=== PATIENT | male | born 1955 | race Caucasian/White ===

== ENCOUNTER 2018-08-18 11:00 | Emergency (ER) | payer BC, OTHER ==
[2018-08-18 11:10] VITALS: BP 138/98; PULSE 109; TEMP 98.1; BMI 22.8
[2018-08-18] MEDS ORDERED: KETOROLAC TROMETHAMINE 60 MG/2 ML VIAL IM ONE (11:56)
[2018-08-18] MEDS ORDERED: CYCLOBENZAPRINE HCL 10 MG TABLET (FP) PO ONE (11:56)
[2018-08-18] MEDS ORDERED: LIDOCAINE 5% TOPICAL PATCH TP ONE (11:56)
--- NOTE | 2018-08-18 11:56 | PDOC ---
History of Present Illness - General Chief Complaint: Back Pain Stated Complaint: LOWER RT.BACK PAIN Time Seen by Provider: 08/18/18 11:12 History Source: Patient Exam Limitations: No Limitations Past History - Travel Traveled outside of the country in the last 30 days: No Close contact w/someone who was outside of country & ill: No - Past Medical History Allergies/Adverse Reactions: Allergies Allergy/AdvReac Type Severity Reaction Status Date / Time No Known Allergies Allergy Verified 08/18/18 11:08 Home Medications: Ambulatory Orders Alprazolam [Xanax] 1 mg PO DAILY 08/23/12 Oxycodone HCl/Acetaminophen [Percocet 10-325 mg Tablet] 1 - 2 tab PO Q8H Simvastatin [Zocor -] 10 mg PO HS 08/23/12 Aspirin [ASA -] 81 mg PO DAILY 11/27/13 Atorvastatin Ca [Lipitor] 80 mg PO HS 11/27/13 Lisinopril [Prinivil -] 2.5 mg PO DAILY 11/27/13 Metoprolol Succinate [Toprol XL -] 12.5 mg PO DAILY 11/27/13 Sulfasalazine [Azulfidine] 500 mg PO HS 11/27/13 Cane 1 each MC DAILY #1 each 08/18/18 Cyclobenzaprine HCl [Flexeril -] 10 mg PO HS #10 tablet 08/18/18 Methylprednisolone [Medrol Dose [place]] 4 mg PO ASDIR #21 tablet 08/18/18 Cardiac Disorders: Yes ([place]) COPD: No HTN: Yes Hypercholesterolemia: Yes Psychiatric Problems: Yes (anxiety) Other medical history: DEGENERATIVE DISC DIS - Surgical History Cardiac Surgery: Yes (stents) - Suicide/Smoking/Psychosocial Hx Smoking Status: No Smoking History: Former smoker Have you smoked in the past 12 months: No Number of Cigarettes Smoked Daily: 0 If you are a former smoker, when did you quit?: 2006 Information on smoking cessation initiated: No Hx Alcohol Use: No Drug/Substance Use Hx: No Substance Use Type: Marijuana Hx Substance Use Treatment: No Review of Systems - Review of Systems Able to Perform ROS?: Yes Comments:: 08/18/18 12:45 CONSTITUTIONAL: Absent: fever, chills, diaphoresis, generalized weakness, malaise, loss of appetite GASTROINTESTINAL: Absent: abdominal pain, abdominal distension, nausea, vomiting, diarrhea, constipation, melena, hematochezia GENITOURINARY: Absent: dysuria, frequency, urgency, hesitancy, hematuria, flank pain, genital pain MUSCULOSKELETAL: Present: low back pain, radiating down the R leg Absent: arthralgia, joint swelling SKIN: Absent: rash, itching, pallor NEUROLOGIC: Absent: headache, focal weakness or paresthesias, dizziness, unsteady gait, seizure, mental status changes, bladder or bowel incontinence PSYCHIATRIC: Absent: anxiety, depression, suicidal or homicidal ideation, hallucinations. Is the patient limited [place] proficient: No *Physical Exam - Vital Signs Last Vital Signs Temp Pulse Resp BP Pulse Ox 98.1 F 109 H 18 138/98 98 08/18/18 11:03 08/18/18 11:03 08/18/18 11:03 08/18/18 11:03 08/18/18 11:03 - Physical Exam Comments: 08/18/18 12:45 GENERAL: Well developed, well nourished. Awake and alert. No acute distress. MUSCULOSKELETAL TTP of the midline around L5/ (+) straight leg test on the R. Strength 4/5 on the R leg, 5/5 on the left. Normal range of motion at all other joints. No bony deformities or tenderness. No CVA tenderness. EXTREMITIES: No cyanosis. No clubbing. No edema. No calf tenderness. SKIN: Warm and dry. Normal capillary refill. No rashes. No jaundice. NEUROLOGICAL: Alert, awake, appropriate. Cranial nerves 2-12 intact. No deficits to light touch and temperature in face, upper extremities and lower extremities. No motor deficits in the in face, upper extremities and lower extremities. Normoreflexic in the upper and lower extremities. Normal speech. Toes are down- going bilaterally. Gait is normal without ataxia. Walking with limp favoring the L side. Normal rectal tone. PSYCHIATRIC: Cooperative. Good eye contact. Appropriate mood and affect. Medical Decision Making - Medical Decision Making 08/18/18 12:47 The patient is a 63-year-old male with past medical history of laminectomy low back, CAD, [place] status post stents in 2012, presents to the ER today with worsening low back pain. He states that his pain started approximately 1 week ago. He states that it was gradually getting better over the past week with home remedies. 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 He states that the pain is now going down the right leg. He is walking with a limp and using a cane to ambulate which he does not normally do. States he feels like the pain is a shooting pinching pain. Denies fevers, chills, numbness and tingling to the extremity, saddle anesthesia, bladder/bowel incontinence, trauma and fall. He follows with his PCP and has a prescription for percocet which he has taken prior to arrival. A/P: back pain -Pt with TTP of the midline around L5/ (+) straight leg test on the R. Muscles tense of the paraspinous muscles L3-S1. Strength 4/5 on the R leg, 5/5 on the left. Normal range of motion at all other joints. No bony deformities or tenderness. No CVA tenderness. -No trauma, or fever. No saddle anesthesia or bladder/bowel incontinence. No CVA tenderness. -Pt is neurologically intact on exam with no focal findings. -Toradol given with relief of symptoms -Lumbar spine x-ray shows decreased disc space from L5-S1 when compaired to previous x-ray on wet read] -Will refer to orthospine given patient may have disc pathology -DC home -I discussed the physical exam findings, ancillary test results and final diagnoses with the patient. I answered all of the patient's questions. The patient was satisfied with the care received and felt comfortable with the discharge plan and treatment plan. The Patient agrees to follow up with the primary care physician/specialist within 24-72 hours. Return precautions were given. *DC/Admit/Observation/Transfer Diagnosis at time of Disposition: Back pain Qualifiers: Back pain location: low back pain Chronicity: acute Back pain laterality: midline Sciatica presence: with sciatica Sciatica laterality: sciatica of right side Qualified Code(s): M54.41 - Lumbago with sciatica, right side - Discharge Dispostion Disposition: HOME Condition at time of disposition: Stable Decision to Admit order: No - Referrals Referrals: Jose Luis Desai MD [Primary Care Provider] - Maynor Prather MD [Staff Physician] - - Patient Instructions Printed Discharge Instructions: DI for Back Pain With Sciatica Additional Instructions: You have low back pain due to a muscle spasm verse a herniated disc. Please take the steroid pack as prescribed. You were also prescribed Flexeril. Please take this medication every 8 hours for the first day. Then take the medication before you go to bed. Do not drive after taking this medication as it may make you sleepy. Take your percocet as prescribed. You may use warm compresses on your back to help with her symptoms. Please follow-up with your primary care doctor. If your symptoms do not resolve in 3-5 days, follow-up with neurosurgery. A referral has been provided for you. Return to the emergency department if you have worsening back pain, bladder or bowel incontinence, numbness and tingling in her legs, changes in the way you walk, or any new or worsening symptoms. - Post Discharge Activity Forms/Work/School Notes: Back to Work
[2018-08-18] MEDS ORDERED: CYCLOBENZAPRINE HCL 10 MG TABLET (FP) ONE (12:03)
[2018-08-18] MEDS ORDERED: LIDOCAINE 5% TOPICAL PATCH ONE (12:03)
[2018-08-18] MEDS ORDERED: KETOROLAC TROMETHAMINE 60 MG/2 ML VIAL ONE (12:03)
[2018-08-18] MEDS ORDERED: LIDOCAINE PATCH REMOVAL MC SCH (22:00)
== END 2018-08-18 13:09 | disposition home or self-care (01) ==
LOC: JERFT 11:00
PROC: 3E0233Z Introduction of Anti-inflammatory into Muscle, Percutaneous Approach (ICD-10-PCS; principal; 2018-08-18)
DX: M54.41 Lumbago with sciatica, right side (principal); M51.37 Other intervertebral disc degeneration, lumbosacral region; I25.10 Atherosclerotic heart disease of native coronary artery without angina pectoris; I10 Essential (primary) hypertension; I25.2 Old myocardial infarction; E78.5 Hyperlipidemia, unspecified; F41.9 Anxiety disorder, unspecified
CPT/HCPCS: 72100-TC-FY; 96372; 99281-25

== ENCOUNTER 2019-12-03 17:44 | Observation (INO) | payer OTHER ==
--- NOTE | 2019-12-03 17:57 | PDOC ---
Rapid Medical Evaluation Time Seen by Provider: 12/03/19 17:50 Medical Evaluation: Allergies Allergy/AdvReac Type Severity Reaction Status Date / Time No Known Allergies Allergy Verified 12/03/19 17:50 12/03/19 17:51 Pt presents to the ER for an episode of sudden onset dizziness, blurry vision and headache starting one hour ago. Pt reports a eye heaviness Exam: R facial flattening Orders: Stroke orderset / code herrera Pt to proceed to the ER/CT for further evaluation Discharge Disposition - Diagnosis Dizziness - Referrals - Patient Instructions - Post Discharge Activity
[2019-12-03] MEDS: SODIUM CHLORIDE 1,000 ML IV SCH (18:39)
[2019-12-03] MEDS ORDERED: ASPIRIN 81 MG CHEWABLE TABLETS PO ONE (18:40)
--- NOTE | 2019-12-03 18:40 | PDOC ---
History of Present Illness - General History Source: Patient Exam Limitations: No Limitations - History of Present Illness Initial Comments: 12/03/19 18:03 HPI: 64 yo M pmh CAD with IN s/p 3 stents in 2012 not on AC, presenting with acute resolved painless visual field loss lasting from 4:30 to 4:50PM this evening. 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 Field loss was accompanied by an intense tingling sensation superior and lateral to his eye that has since decreased in severity with only mild tingling at present. Endorses feeling intense anxiety at this point. Looked at himself in the mirror and noted a normal smile, no droop, kole es any focal numbness / tingling other than facial. History of left eye strabismus, corrected. Denies history of headaches, no chest pain, fevers, chills, nausea, vomiting, SOB, cough, recent illnesses. Denies any pungent / toxic fumes while working on the air conditioning unit. All: NKDA Meds: Per chart PMH: As above PSH: 3x cardiac stents <Rik Liang - Last Filed: 12/15/19 05:32> <Caleb Judge - Last Filed: 12/16/19 21:22> - General Chief Complaint: CVA/TIA Stated Complaint: DIZZINESS/RT EYE BLURRY VISION Time Seen by Provider: 12/03/19 17:50 NIH Stroke Scale - Last Known Well Date/Time & Onset Date Last Known Well: 12/03/19 Time Last Known Well: 16:30 - Initial Evaluation Level of consciousness: Alert Ask patient the month and their age: Answers both correctly Ask patient to open & close eyes; make fist and let go: Obeys both correctly Best gaze (horizontal eye movement): Normal Visual field testing: No visual field loss Facial paresis (Show teeth/raise eyebrows/close eyes tight): Normal symmetrical movement Motor Function: Left Arm: Normal Motor Function: Right Arm: Normal (extends arm 90 (or 45) degrees for 10 seconds without drift Motor Function: Left Leg: Normal (extends leg 30 degrees for 5 seconds without drift) Motor Function: Right Leg: Normal (extends leg 30 degrees for 5 seconds without drift) Limb Ataxia: No ataxia Sensory(Use pinprick test arms,legs,trunk,face/side to side): Normal Best language (Describe picture, name items, read sentences): No Aphasia Dysarthria (read several words): Normal articulation Extinction and Inattention: No abnormality - Total Score NIH Stroke Scale Score: 0 <Rik Liang - Last Filed: 12/15/19 05:32> tPA Exclusion Checklist 0-3hr - Time Elapsed Date last known well: 12/03/19 Time last known well: 16:30 Elaspsed time: 11 Day(s) and 13 Hour(s) and 2 Minutes - Thrombolytic Therapy Candidate Is the patient eligible for Thrombolytic Therapy?: No - Exclusion Criteria 0-3hr SBP greater than 185 or DBP greater than 110mmHg despite tx: No Recent IC/spinal surgery,head trauma or stroke w/in last 3mo: No Hx of previous IC hemorrhage, IC neoplasm, AVM or aneurysm: No Active internal bleeding: No Blding diathesis(low plt ct, inc PTT,INR>1.7 or use of NOAC): No Symptoms suggest subarachnoid hemorrhage: No CT demonstrates multilobar infarct(>1/3 cerebral hemiphere): No Arterial puncture at noncompressible site in previous 7 days: No Blood glucose concentration less than 50mg/dL (2.7mmol/L): No - Relative Exclusion Criteria 0-3h Care team unable to determine eligibility: No IV/IA thrombolysis/thrombectomy @ another hosp prior arrival: No Life expectancy <1yr/severe co-morbid illness/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 on 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: No : No Patient/family refused: No Stroke severity too mild (non-disabling): Yes Recent acute IN (w/in previous 3 months): No Seizure at onset with postictal residual neuro impairments: No Major surgery or serious trauma w/in previous 14 days: No Recent GI or hemorrhage (w/in previous 21 days): No <Rik Liang - Last Filed: 12/15/19 05:32> Past History - Travel History Traveled outside of the country in the last 30 days: No Close contact w/someone who was outside of country & ill: No - Medical History Cardiac Disorders: Yes (STENTS X 3) COPD: No HTN: Yes Hypercholesterolemia: Yes Psychiatric Problems: Yes (anxiety) - Surgical History Cardiac Surgery: Yes (stents) - Immunization History Immunization Up to Date: Yes - Psycho-Social/Smoking History Smoking Status: No Smoking History: Never smoked Have you smoked in the past 12 months: No Number of Cigarettes Smoked Daily: 0 If you are a former smoker, when did you quit?: 2006 - Substance Abuse Hx (Audit-C & DAST Scrn) How often the patient has a drink containing alcohol: Never Score: In Men: 4 or > Positive; In Women: 3 or > Positive: 0 Screen Result (Pos requires Nsg. Audit-10AR): Negative In the last yr the pt used illegal drug/Rx for NonMed reason: Yes Score: Yes response is considered Positive: 1 Screen Result (Positive result requires Nsg. DAST-10): Positive <Rik Liang - Last Filed: 12/15/19 05:32> <Caleb Judge - Last Filed: 12/16/19 21:22> - Medical History Allergies/Adverse Reactions: Allergies Allergy/AdvReac Type Severity Reaction Status Date / Time No Known Allergies Allergy Verified 12/03/19 17:50 Home Medications: Ambulatory Orders Alprazolam [Xanax] 0.5 mg PO TID 08/23/12 Atorvastatin Ca [Lipitor] 40 mg PO HS 12/04/19 Oxycodone HCl/Acetaminophen [Endocet 10-325 mg Tablet] 1 each PO QID PRN 12/04/19 Review of Systems - Review of Systems Able to Perform ROS?: Yes Is the patient limited [place] proficient: Yes Constitutional: No: Chills, Fever, Weakness HEENTM: Yes: Recent change in vision. No: Hearing Loss, Throat Pain Respiratory: No: Cough, Shortness of Breath, Wheezing Cardiac (ROS): No: Chest Pain, Edema, Irregular Heart Rate, Lightheadedness, Palpitations, Syncope, Chest Tightness ABD/GI: No: Constipated, Diarrhea, Nausea, Vomiting : No: Dysuria, Discharge, Frequency Musculoskeletal: No: Muscle Pain, Muscle Weakness Integumentary: No: Pruritus, Rash Neurological: No: Headache, Numbness, Tingling, Weakness Psychiatric: Yes: Anxiety. No: Depression, Frequent Crying, Change in Appetite Endocrine: No: Increased Thirst, Increased Urine, Change in Weight Hematologic/Lymphatic: No: Anemia, Blood Clots, Easy Bleeding All Other Systems: Reviewed and Negative <Rik Liang - Last Filed: 12/15/19 05:32> *Physical Exam - Vital Signs Last Vital Signs Temp Pulse Resp BP Pulse Ox 99.1 F 92 H 20 155/87 97 12/03/19 17:51 12/03/19 17:51 12/03/19 17:51 12/03/19 17:51 12/03/19 17:51 - Physical Exam 12/03/19 19:01 Vitals reviewed, AFVSS GEN: Well appearing, appears stated age, NAD, comfortable. AAOx3. HEENT: NCAT, EOMI, PERRL. Sclera anicteric, non-injected. No facial asymmetry. Moist mucous membranes. Normal voice. Trachea midline. CV: RRR, S1/S2, no murmurs / rubs / gallops appreciated. LUNG: CTABL, normal work of breathing. No wheezes, rales, rhonchi. No cough. Speaking full sentences. GI: Soft, NTND, +BS, no guarding, no rebound. No masses. EXTREMITIES: 2+ distal pulses. No clubbing / cyanosis / edema. No gross deformity in any extremity. SKIN: Warm, dry, no rashes appreciated, non-jaundiced. PSYCH: Normal mood and affect. Cooperative and appropriate. NEURO: NIHSS 0 on arrival Strength 5+ biceps, triceps, intrinsic hand muscles, hip flexors / extensors / foot dorsiflexion / plantarflexion Sensation normal throughout to light touch Reflexes not assessed Romberg negative [id number] and heel-wells normal (+No dysmetria) Rapid alternating movements normal (No dysdiadokinesis) Pronator drift not present Gait normal 20/20 visual acuity with corrective lenses Cranial nerves: CN 1: Not assessed CN 2: Normal visual pinzon and acuity CN 3/4/6: EOMI CN 5: Patient reporting decreased / abnormal sensation over a 3cm patch of V1 on the right around the eye not consistent with a distribution CN 7: Normal facial movement CN 8: Symmetric hearing soft sounds CN 9: Uvula midline and normal articulation CN 10: Uvula midline and normal articulation CN 11: Normal shrug / head turn strength CN 12: Normal tongue movement A&Ox3, normal remote and recent recall. <Rik Liang - Last Filed: 12/15/19 05:32> - Vital Signs Last Vital Signs Temp Pulse Resp BP Pulse Ox 97.6 F 68 18 139/72 97 12/05/19 09:00 12/05/19 09:00 12/05/19 10:00 12/05/19 09:00 12/05/19 10:00 <Caleb Judge - Last Filed: 12/16/19 21:22> ED Treatment Course - LABORATORY CBC & Chemistry Diagram: 12/05/19 06:50 12/05/19 06:50 <Rik Liang - Last Filed: 12/15/19 05:32> - LABORATORY CBC & Chemistry Diagram: 12/05/19 06:50 12/05/19 06:50 - ADDITIONAL ORDERS Additional order review: 12/03/19 18:20 RBC 4.24 MCV 94.3 MCHC 34.3 RDW 12.7 MPV 8.8 Neutrophils % 67.2 Lymphocytes % 23.6 D Monocytes % 7.1 Eosinophils % 1.3 Basophils % 0.8 - Medications Given in the ED: ED Medications Discontinued Medications Generic Name Dose Route Start Last Admin Trade Name Freq PRN Reason Stop Dose Admin Acetaminophen 325 mg 12/04/19 01:15 12/04/19 01:42 Tylenol - PO 12/04/19 01:16 325 mg ONCE ONE Administration Acetaminophen 325 mg 12/04/19 11:30 12/05/19 07:47 Tylenol - PO 325 mg Q6H PRN Administration PAIN LEVEL 7 - 10 Alprazolam 0.5 mg 12/03/19 19:32 12/04/19 10:06 Xanax PO 0.5 mg ONCE PRN Administration ANXIETY Alprazolam 0.5 mg 12/04/19 14:00 12/05/19 09:20 Xanax PO 0.5 mg TID PRN Administration ANXIETY Aspirin 162 mg 12/03/19 18:40 12/03/19 19:28 Asa - PO 12/03/19 18:41 162 mg ONCE ONE Administration Atorvastatin Calcium 40 mg 12/04/19 22:00 12/04/19 21:10 Lipitor - PO 40 mg HS JESUS Administration Enoxaparin Sodium 40 mg 12/04/19 10:00 12/05/19 09:20 Lovenox - SQ 40 mg DAILY JESUS Administration Sodium Chloride 1,000 mls @ 42 mls/hr 12/03/19 18:00 12/04/19 18:02 Normal Saline - IV 42 mls/hr ASDIR JESUS Administration Oxycodone HCl 5 mg 12/04/19 01:15 12/04/19 01:43 Roxicodone - PO 12/04/19 01:16 5 mg ONCE ONE Administration Oxycodone HCl 10 mg 12/04/19 11:30 12/05/19 07:47 Roxicodone - PO 10 mg Q6H PRN Administration PAIN LEVEL 7 - 10 <Caleb Judge - Last Filed: 12/16/19 21:22> Medical Decision Making - Medical Decision Making 12/03/19 18:55 64 yo M pmh CAD with IN s/p 3 stents in 2012 not on AC, presenting with acute resolved painless visual field loss lasting from 4:30 to 4:50PM this evening. History notable for cardiac stents, no AC, 20 minutes until symptom resolution, distribution not in a classic nerve distribution. 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 ABCD TIA score 2 (for age and duration, low risk). Consult call placed to Dr. Salinas, on-call neurology. DDX: TIA vs CRAO vs less likely retinal detachment (vision restored). - Emergent code herrera CT head - CBC, CMP, Coags, Lipid profile, Cardiac profile, UA - EKG - Aspirin 162 - 1L Normal saline - Will discuss case with neurology to determine admit for MRI vs outpatient management 12/03/19 19:[address] Salinas, due to advanced age, risk factors, would admit for MRI Brain Should be on 81 mg daily, increase pending MRI Dispo: Admit for MRI 12/03/19 20:35 Endorsed to inpatient medicine team <Rik Liang - Last Filed: 12/15/19 05:32> Discharge - Discharge Information Problems reviewed: Yes <Rik Liang - Last Filed: 12/15/19 05:32> - Discharge Information Problems reviewed: Yes <Caleb Judge - Last Filed: 12/16/19 21:22> - Discharge Information Clinical Impression/Diagnosis: Numbness and tingling of right side of face, Dizziness, Anxiety Condition: Guarded Disposition: HOME
[2019-12-03 19:11] LABS: BASO % 0.8 % (0-2.0); EOS % 1.3 % (0-4.5); HEMOGLOBIN 13.7 GM/dL (11.7-16.9); LYMPH % 23.6 % (8-40); MCH 32.3 pg (25.7-33.7); MCHC 34.3 g/dl (32.0-35.9); MEAN CELL VOLUME 94.3 fl (80-96); MEAN PLT VOLUME 8.8 fl (7.5-11.1); MONO % 7.1 % (3.8-10.2); NEUT % 67.2 % (42.8-82.8); PLATELET COUNT 255 K/MM3 (134-434); RBC 4.24 M/mm3 (4.00-5.60); RDW 12.7 % (11.9-15.9); WHITE BLOOD COUNT 6.8 K/mm3 (4.0-10.0)
[2019-12-03] MEDS ORDERED: ASPIRIN 81 MG CHEWABLE TABLETS ONE (19:17)
[2019-12-03 19:18] LABS: INR 1.04 (0.83-1.09); PROTHROMBIN TIME (PATIENT) 12.3 SEC (9.7-13.0)
[2019-12-03 19:21] LABS: ACTIVATED PTT 30.2 SECONDS (25.2-36.5)
[2019-12-03 19:38] LABS: CHOLESTEROL 163 mg/dL (50-200); HDL CHOLESTEROL 64 mg/dL (40-60); LDL CHOLESTEROL (ONLY SJRH) 85 mg/dL (5-100); TRIGLYCERIDES 141 mg/dL (0-150)
[2019-12-03 19:41] LABS: ALBUMIN 4.4 g/dl (3.4-5.0); ALK PHOS 78 U/L (45-117); ANION GAP 10 MMOL/L (8-16); BILIRUBIN,TOTAL 0.4 mg/dL (0.2-1); BLOOD UREA NITROGEN 16.6 mg/dL (7-18); CALCIUM 9.2 mg/dL (8.5-10.1); CHLORIDE 105 mmol/L (98-107); CO2 27 mmol/L (21-32); CREATININE 0.9 mg/dL (0.55-1.3); GLUCOSE,RANDOM 85 mg/dL (74-106); POTASSIUM 3.9 mmol/L (3.5-5.1); SGOT/AST 23 U/L (15-37); SGPT/ALT 27 U/L (13-61); SODIUM 141 mmol/L (136-145)
[2019-12-03] MEDS ORDERED: ALPRAZolam 0.25 MG TABLET ONE (19:44)
--- NOTE | 2019-12-03 19:54 | PDOC ---
Attending Attestation - Resident Resident Name: Rik Liang - ED Attending Attestation I have performed the following: I have examined & evaluated the patient, The case was reviewed & discussed with the resident, I agree w/resident's findings & plan, Exceptions are as noted - HPI HPI: 12/03/19 19:48 64yo male w/ pmhx anxiety, cad sp stents in 2012 no longer on plavix, prior strabismus here today w/ 20min of R lower field of vision hemaniopa after standing up from seated position assoc w/ tingeling in along R lateral eyebrow/ orthodox. No assoc rodriguez nausea or cp / sob. Now completely resolved - Physicial Exam PE: 12/03/19 19:50 CN II-XII intact wo deficits PERRLA Vision intact VALDES 5+ strenght Aox4 Normal gait - Medical Decision Making 12/03/19 19:51 64 yo male w/ questionable field of vision loss x 20min no resolved NIHH score 0, normal vision now, will eval for tia / crao vs anxiety vs atypical acs Plan CTH Consult and d/w neuro: Neuro reccs Likely to DC on aspirin daily w/ neuro follow up if all negative ABCD2 score 1-2 Discharge - Discharge Information Clinical Impression/Diagnosis: Dizziness - Follow up/Referral Referrals: Jose Luis Desai MD [Primary Care Provider] - - Patient Discharge Instructions - Post Discharge Activity
[2019-12-03] MEDS: ALPRAZolam 1 MG TABLET PO PRN (20:13)
[2019-12-04 01:13] LABS: URINE APPEARANCE CLEAR; URINE BILIRUBIN NEGATIVE (NEGATIVE); URINE COLOR YELLOW; URINE GLUCOSE (UA) NEGATIVE (NEGATIVE); URINE KETONE NEGATIVE (NEGATIVE); URINE LEUK ESTERASE NEGATIVE (NEGATIVE); URINE NITRITE NEGATIVE (NEGATIVE); URINE PROTEIN NEGATIVE (NEGATIVE); URINE UROBILINOGEN 0.2 mg/dL (0.2-1.0)
[2019-12-04] MEDS ORDERED: ACETAMINOPHEN 325 MG TABLET (FP) PO ONE (01:15)
[2019-12-04] MEDS ORDERED: oxyCODONE HCL 5 MG TABLET PO ONE (01:15)
[2019-12-04 01:27] VITALS: BMI 22.3
--- NOTE | 2019-12-04 03:54 | HP ---
CHIEF COMPLAINT: Painless loss of vision for 20 minutes across bottom of right eye with tingling in superior-lateral aspect above eye PCP: Dr. 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 The patient reports feeling afraid that he might have been having either a stroke or a brain aneurysm, as he has a family history of both a stroke and of his mother have a brain aneurysm that "popped". The patient has been having transient spots in his vision, but he became worried about both the size of the length of time that these current symptoms have lasted. The patient is currently free of symptoms. ER course was notable for: (1) ECG (2) Xanax for anxiety, Oxycodone, Aspirin, and Tylenol, IV fluids (3) Head CT Recent Travel: Denied PAST MEDICAL HISTORY: HTN, HLD, CAD PAST SURGICAL HISTORY: 3 stents in 2012, back surgery, left eye surgery Social History: Smokin pack year Alcohol: Denies Drugs: Edible marijuana at least twice a week Allergies No Known Allergies Allergy (Verified 12/03/19 17:50) HOME MEDICATIONS: Home Medications Medication Instructions Recorded Alprazolam [Xanax] 1 mg PO DAILY 08/23/12 Oxycodone HCl/Acetaminophen 1 - 2 tab PO Q8H 08/23/12 [Percocet 10-325 mg Tablet] Simvastatin [Zocor -] 10 mg PO HS 08/23/12 Aspirin [ASA -] 81 mg PO DAILY 11/27/13 Atorvastatin Ca [Lipitor] 80 mg PO HS 11/27/13 Lisinopril [Prinivil -] 2.5 mg PO DAILY 11/27/13 Metoprolol Succinate [Toprol XL -] 12.5 mg PO DAILY 11/27/13 Sulfasalazine [Azulfidine] 500 mg PO HS 11/27/13 Cane 1 each MC DAILY #1 each 08/18/18 Cyclobenzaprine HCl [Flexeril -] 10 mg PO HS #10 tablet 08/18/18 Methylprednisolone [Medrol Dose 4 mg PO ASDIR #21 tablet 08/18/18 [place]] Sertraline HCl [Zoloft] 25 mg PO DAILY 12/03/19 REVIEW OF SYSTEMS CONSTITUTIONAL: Absent: fever, chills, recent illness CARDIOVASCULAR: Absent: chest pain, palpitations RESPIRATORY: Absent: cough, shortness of breath GASTROINTESTINAL: Absent: nausea, vomiting GENITOURINARY: Absent: dysuria NEUROLOGIC: Absent: headache PHYSICAL EXAMINATION Vital Signs - 24 hr 12/03/19 12/03/19 12/03/19 17:51 19:28 23:35 Temperature 99.1 F Pulse Rate 92 H Pulse Rate [ 85 75 Apical] Respiratory 20 14 12 Rate Blood Pressure 155/87 Blood Pressure 135/85 135/99 [Left Arm] O2 Sat by Pulse 97 97 99 Oximetry (%) 12/04/19 00:57 Temperature 99.0 F Pulse Rate 81 Pulse Rate [ Apical] Respiratory 18 Rate Blood Pressure 155/90 Blood Pressure [Left Arm] O2 Sat by Pulse 95 Oximetry (%) GENERAL: Awake, alert, and fully oriented, in no acute distress. HEAD: Normal with no signs of trauma. EYES: Pupils equal, round and reactive to light, extraocular movements intact. No lid lag. EARS, NOSE, THROAT: Ears normal, nares patent, oropharynx clear without exudates. Moist mucous membranes. NECK: Normal range of motion, supple without lymphadenopathy, JVD, or masses. LUNGS: Breath sounds equal, clear to auscultation bilaterally. No wheezes, and no crackles. No accessory muscle use. HEART: Regular rate and rhythm, normal S1 and S2 without murmur, rub or gallop. ABDOMEN: Soft, nontender, not distended, normoactive bowel sounds, no guarding, no rebound, no masses. MUSCULOSKELETAL: Normal range of motion at all joints. No bony deformities or tenderness. UPPER EXTREMITIES: 2+ pulses, warm, well-perfused. No cyanosis. No clubbing. No peripheral edema. LOWER EXTREMITIES: 2+ pulses, warm, well-perfused. No calf tenderness. No peripheral edema. NEUROLOGICAL: Cranial nerves II-XII intact. Normal speech. Normal gait. Muscle Strength +5/5 bilaterally UE's and LE's. No numbness in all dermatomes of face. Numbness in S1 dermatome of right foot, which the patient says is chronic from his back problems. PSYCHIATRIC: Cooperative. Good eye contact. Appropriate mood and affect. SKIN: Warm, dry, normal turgor, no rashes or lesions noted, normal capillary refill. Laboratory Results - last 24 hr 12/03/19 12/03/19 12/03/19 18:20 18:20 18:20 WBC 6.8 RBC 4.24 Hgb 13.7 Hct 40.0 MCV 94.3 MCH 32.3 MCHC 34.3 RDW 12.7 Plt Count 255 MPV 8.8 Absolute Neuts (auto) 4.5 Neutrophils % 67.2 Lymphocytes % 23.6 D Monocytes % 7.1 Eosinophils % 1.3 Basophils % 0.8 Nucleated RBC % 0 PT with INR 12.30 INR 1.04 PTT (Actin FS) 30.2 Sodium Potassium Chloride Carbon Dioxide Anion Gap BUN Creatinine Est GFR (CKD-EPI)AfAm Est GFR (CKD-EPI)NonAf Random Glucose Calcium Total Bilirubin AST ALT Alkaline Phosphatase Creatine Kinase Troponin I Total Protein Albumin Triglycerides 141 Cholesterol 163 Total LDL Cholesterol 85 HDL Cholesterol 64 H Urine Color Urine Appearance Urine pH Ur Specific [place] Urine Protein Urine Glucose (UA) Urine Ketones Urine Blood Urine Nitrite Urine Bilirubin Urine Urobilinogen Ur Leukocyte Esterase Blood Type Antibody Screen 12/03/19 12/03/19 12/04/19 18:20 18:20 00:00 WBC RBC Hgb Hct MCV MCH MCHC RDW Plt Count MPV Absolute Neuts (auto) Neutrophils % Lymphocytes % Monocytes % Eosinophils % Basophils % Nucleated RBC % PT with INR INR PTT (Actin FS) Sodium 141 Potassium 3.9 Chloride 105 Carbon Dioxide 27 Anion Gap 10 BUN 16.6 Creatinine 0.9 Est GFR (CKD-EPI)AfAm 104.98 Est GFR (CKD-EPI)NonAf 90.58 Random Glucose 85 Calcium 9.2 Total Bilirubin 0.4 AST 23 ALT 27 Alkaline Phosphatase 78 Creatine Kinase 97 Troponin I < 0.02 Total Protein 7.0 Albumin 4.4 Triglycerides Cholesterol Total LDL Cholesterol HDL Cholesterol Urine Color Yellow Urine Appearance Clear Urine pH 7.0 Ur Specific [place] 1.005 L Urine Protein Negative Urine Glucose (UA) Negative Urine Ketones Negative Urine Blood Negative Urine Nitrite Negative Urine Bilirubin Negative Urine Urobilinogen 0.2 Ur Leukocyte Esterase Negative Blood Type O POSITIVE Antibody Screen Negative ASSESSMENT/PLAN: 64 year old male patient with past medical history of HTN, HLD, CAD s/p 3 stent s, who presented to the emergency room with painless loss of vision for 20 minutes across bottom of right eye with tingling in superior-lateral aspect above the right eye. 1. r/o TIA - Neurochecks - MRA - ASA and Statin 2. r/o Brain Aneurym - Mother had a brain aneurysm that popped - MRA 3. HTN - Permissive HTN - May resume home meds when clinically appropriate 4. HLD - Atorvastatin # FEN - NS @ 42, Monitoring Electrolytes, Chol/Fat Controlled Diet DVT PPx - Lovenox SQ Family Medical History Family History: As Documented Family Hx Diabetes: Sister (2 Sisters with diabetes) Family Hx Nuerologic Problems: Mother Other Family History: Stroke, Mother had brain aneurysm that "popped" Visit type - Emergency Visit Emergency Visit: Yes ED Registration Date: 12/03/19 Care time: The patient presented to the Emergency Department on the above date and was hospitalized for further evaluation of their emergent condition. - New Patient This patient is new to me today: Yes Date on this admission: 12/04/19 - Critical Care Critical Care patient: No ATTENDING PHYSICIAN STATEMENT I saw and evaluated the patient. I reviewed the resident's note and discussed the case with the resident. I agree with the resident's findings and plan as documented. SUBJECTIVE: OBJECTIVE: ASSESSMENT AND PLAN:
--- NOTE | 2019-12-04 04:17 | PN ---
Teaching Attending Note Name of Resident: Dorian Daniel ATTENDING PHYSICIAN STATEMENT I saw and evaluated the patient. I reviewed the resident's note and discussed the case with the resident. I agree with the resident's findings and plan as documented. SUBJECTIVE: 64 years old M with PMH of NITA s/p 3 stents in 2012 presented to hospital with r eye painless vision loss which lasted around 20 minutes. 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 He denies chest pain, abd pain, nausea, vomiting,fever. focal weakness or numbness. After coming to ER his vision is improved. he is asymptomatic OBJECTIVE: Last Vital Signs Temp Pulse Resp BP Pulse Ox 99.0 F 81 18 155/90 95 12/04/19 00:57 12/04/19 00:57 12/04/19 00:57 12/04/19 00:57 12/04/19 00:57 GENERAL: not in acutye distress HEAD: No signs of trauma, normocephalic, atraumatic EYES: PERRLA, EOMI, sclera anicteric, conjunctiva clear ENT: Auricles normal inspection, hearing grossly normal, nares patent, oropharynx clear without exudates. Moist mucosa NECK: Normal ROM, supple, no lymphadenopathy, JVD, or masses HEART: Regular rate and rhythm, normal S1 and S2, no murmurs, rubs or gallops, peripheral pulses normal and equal bilaterally. LUNGS: No distress, speaks full sentences, clear to auscultation bilaterally ABDOMEN: Soft, nontender, normoactive bowel sounds. No guarding, no rebound. No masses EXTREMITIES: Normal inspection, Normal range of motion, [peripheral pulses palpable,no edema NEUROLOGICAL: CNII-XII grossly intact. Normal speech, normal gait, no focal sensorimotor deficits SKIN: Warm, Dry, normal turgor, no rashes or lesions noted ASSESSMENT AND PLAN: possible TIA HTN, HLD Admit to tele tele monitoring neurology was consulted recommnded admission for MRA further stroke work up as per neuro ophthalmology eval in AM Permissive HTN- Hold home antihypertensives HBa1c, lipid profile diet low salt resume rest of home meds Discussed with house staff in details
[2019-12-04 07:27] LABS: BASO % 0.5 % (0-2.0); EOS % 2.8 % (0-4.5); HEMATOCRIT 37.5 % (35.4-49); HEMOGLOBIN 12.8 GM/dL (11.7-16.9); LYMPH % 36.5 % (8-40); MCH 32.1 pg (25.7-33.7); MCHC 34.1 g/dl (32.0-35.9); MEAN PLT VOLUME 8.4 fl (7.5-11.1); MONO % 10.2 % (3.8-10.2); PLATELET COUNT 242 K/MM3 (134-434); RBC 3.99 M/mm3 (4.00-5.60); RDW 12.9 % (11.9-15.9); WHITE BLOOD COUNT 5.8 K/mm3 (4.0-10.0)
[2019-12-04 07:51] LABS: BLOOD UREA NITROGEN 14.2 mg/dL (7-18); CALCIUM 8.7 mg/dL (8.5-10.1); CREATININE 0.8 mg/dL (0.55-1.3); MAGNESIUM 2.2 mg/dL (1.8-2.4); PHOSPHOROUS 3.4 mg/dL (2.5-4.9); POTASSIUM 4.1 mmol/L (3.5-5.1)
--- NOTE | 2019-12-04 08:32 | CONSULT ---
Consult - text type - Consultation Consultation Note: Neurology CHIEF COMPLAINT: Painless loss of vision for 20 minutes across bottom of right eye with tingling in superior-lateral aspect above eye PCP: Dr. 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 The patient reported feeling afraid that he might have been having either a stroke or a brain aneurysm, as he has a family history of both a stroke and of his mother have a brain aneurysm that "popped". The patient has been having transient spots in his vision, but he became worried about both the size of the length of time that these current symptoms have lasted. The patient is currently free of symptoms. Head CT performed and showed no acute intracranial pathology. I discussed the case with the emergency room physician overnight and recommended MRI of the brain to evaluate for CVA. MRA with contrast was ordered,, we'll discontinue. Patient does report taking daily aspirin 81 mg and states that his symptoms have entirely resolved, possibly TIA type event. Further workup will depend on results of MRI brain. Recent Travel: Denied PAST MEDICAL HISTORY: HTN, HLD, CAD PAST SURGICAL HISTORY: 3 stents in 2012, back surgery, left eye surgery Social History: Smokin pack year Alcohol: Denies Drugs: Edible marijuana at least twice a week Family Medical History Family History: As Documented Family Hx Diabetes: Sister (2 Sisters with diabetes) Family Hx Nuerologic Problems: Mother Other Family History: Stroke, Mother had brain aneurysm that "popped" REVIEW OF SYSTEMS CONSTITUTIONAL: Absent: fever, chills, recent illness CARDIOVASCULAR: Absent: chest pain, palpitations RESPIRATORY: Absent: cough, shortness of breath GASTROINTESTINAL: Absent: nausea, vomiting GENITOURINARY: Absent: dysuria NEUROLOGIC: Absent: headache Allergies No Known Allergies Allergy (Verified 12/03/19 17:50) HOME MEDICATIONS: Home Medications Medication Instructions Recorded Alprazolam [Xanax] 1 mg PO DAILY 08/23/12 Oxycodone HCl/Acetaminophen 1 - 2 tab PO Q8H 08/23/12 [Percocet 10-325 mg Tablet] Simvastatin [Zocor -] 10 mg PO HS 08/23/12 Aspirin [ASA -] 81 mg PO DAILY 11/27/13 Atorvastatin Ca [Lipitor] 80 mg PO HS 11/27/13 Lisinopril [Prinivil -] 2.5 mg PO DAILY 11/27/13 Metoprolol Succinate [Toprol XL -] 12.5 mg PO DAILY 11/27/13 Sulfasalazine [Azulfidine] 500 mg PO HS 11/27/13 Cane 1 each MC DAILY #1 each 08/18/18 Cyclobenzaprine HCl [Flexeril -] 10 mg PO HS #10 tablet 08/18/18 Methylprednisolone [Medrol Dose 4 mg PO ASDIR #21 tablet 08/18/18 [place]] Sertraline HCl [Zoloft] 25 mg PO DAILY 12/03/19 Active Medications Alprazolam (Xanax) 0.5 mg PO ONCE PRN PRN Reason: ANXIETY Last Admin: 12/03/19 20:13 Dose: 0.5 mg Documented by: Atorvastatin Calcium (Lipitor -) 80 mg PO HS [facility] Enoxaparin Sodium (Lovenox -) 40 mg SQ DAILY JESUS Sodium Chloride (Normal Saline -) 1,000 mls @ 42 mls/hr IV ASDIR JESUS Last Admin: 12/03/19 18:39 Dose: 42 mls/hr Documented by: PHYSICAL EXAMINATION Vital Signs Period Temp Pulse Resp BP Sys/Cid Pulse Ox Last 24 Hr 97.9 F-99.1 F 66-92 12-20 135-155/80-99 95-99 GENERAL: Awake, alert, and fully oriented, in no acute distress. HEAD: Normal with no signs of trauma. EYES: Pupils equal, round and reactive to light, extraocular movements intact. No lid lag. EARS, NOSE, THROAT: Ears normal, nares patent, oropharynx clear without exudates. Moist mucous membranes. NECK: Normal range of motion, supple without lymphadenopathy, JVD, or masses. LUNGS: Breath sounds equal, clear to auscultation bilaterally. No wheezes, and no crackles. No accessory muscle use. HEART: Regular rate and rhythm, normal S1 and S2 without murmur, rub or gallop. ABDOMEN: Soft, nontender, not distended, normoactive bowel sounds, no guarding, no rebound, no masses. MUSCULOSKELETAL: Normal range of motion at all joints. No bony deformities or tenderness. UPPER EXTREMITIES: 2+ pulses, warm, well-perfused. No cyanosis. No clubbing. No peripheral edema. LOWER EXTREMITIES: 2+ pulses, warm, well-perfused. No calf tenderness. No peripheral edema. NEUROLOGICAL: Cranial nerves II-XII intact. Normal speech. Normal gait. Muscle Strength +5/5 bilaterally UE's and LE's. No numbness in all dermatomes of face. Numbness in S1 dermatome of right foot, which the patient says is chronic from his back problems. PSYCHIATRIC: Cooperative. Good eye contact. Appropriate mood and affect. SKIN: Warm, dry, normal turgor, no rashes or lesions noted, normal capillary refill. CBCD WBC 5.8 K/mm3 (4.0-10.0) 12/04/19 06:56 RBC 3.99 M/mm3 (4.00-5.60) L 12/04/19 06:56 Hgb 12.8 GM/dL (11.7-16.9) 12/04/19 06:56 Hct 37.5 % (35.4-49) 12/04/19 06:56 MCV 94.0 fl (80-96) 12/04/19 06:56 MCHC 34.1 g/dl (32.0-35.9) 12/04/19 06:56 RDW 12.9 % (11.9-15.9) 12/04/19 06:56 Plt Count 242 K/MM3 (134-434) 12/04/19 06:56 MPV 8.4 fl (7.5-11.1) 12/04/19 06:56 CMP Sodium 146 mmol/L (136-145) H 12/04/19 06:56 Potassium 4.1 mmol/L (3.5-5.1) 12/04/19 06:56 Chloride 111 mmol/L (98-107) H 12/04/19 06:56 Carbon Dioxide 30 mmol/L (21-32) 12/04/19 06:56 Anion Gap 5 MMOL/L (8-16) L 12/04/19 06:56 BUN 14.2 mg/dL (7-18) 12/04/19 06:56 Creatinine 0.8 mg/dL (0.55-1.3) 12/04/19 06:56 Random Glucose 75 mg/dL (74-106) 12/04/19 06:56 Calcium 8.7 mg/dL (8.5-10.1) 12/04/19 06:56 Total Bilirubin 0.4 mg/dL (0.2-1) 12/03/19 18:20 AST 23 U/L (15-37) 12/03/19 18:20 ALT 27 U/L (13-61) 12/03/19 18:20 Alkaline Phosphatase 78 U/L (45-117) 12/03/19 18:20 Total Protein 7.0 g/dl (6.4-8.2) 12/03/19 18:20 Albumin 4.4 g/dl (3.4-5.0) 12/03/19 18:20 CARDIAC ENZYMES Creatine Kinase 97 U/L (26-308) 12/03/19 18:20 Troponin I < 0.02 ng/ml (0.00-0.05) 12/03/19 18:20 ASSESSMENT/PLAN: 64 year old male patient with past medical history of HTN, HLD, CAD s/p 3 stents, who presented to the emergency room with painless loss of vision for 20 minutes across bottom of right eye with tingling in superior-lateral aspect above the right eye 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 The patient reported feeling afraid that he might have been having either a stroke or a brain aneurysm, as he has a family history of both a stroke and of his mother have a brain aneurysm that "popped". The patient has been having transient spots in his vision, but he became worried about both the size of the length of time that these current symptoms have lasted. The patient is currently free of symptoms. Head CT performed and showed no acute intracranial pathology. I discussed the case with the emergency room physician overnight and recommended MRI of the brain to evaluate for CVA. MRA with contrast was ordered,, we'll discontinue. Patient does report taking daily aspirin 81 mg and states that his symptoms have entirely resolved, possibly TIA type event. Further workup will depend on results of MRI brain. monitor blood pressure, maintain normotensive range, continue atorvastatin 40 mg, goal LDL less than 100, less than 70 if CVA noted. Continue aspirin 81 mg daily.
[2019-12-04] MEDS ORDERED: PATIENT'S OWN MEDICATION (NON-FORMULARY) (Oxycodone Hcl/Acetaminophen [Endocet 10-325 Mg T PO PRN (09:39)
[2019-12-04] MEDS: ENOXAPARIN NA (PORCINE) 40 MG/0.4 ML DISP.SYRIN SQ SCH (10:06)
[2019-12-04] MEDS: ALPRAZolam 1 MG TABLET PO PRN ×3 (10:06→21:10)
--- NOTE | 2019-12-04 10:17 | EKG ---
Test Reason : Blood Pressure : / mmHG Vent. Rate : 078 BPM Atrial Rate : 078 BPM P-R Int : 142 ms QRS Dur : 122 ms QT Int : 406 ms P-R-T Axes : 076 083 054 degrees QTc Int : 462 ms NORMAL SINUS RHYTHM WITH SINUS ARRHYTHMIA POSSIBLE LEFT ATRIAL ENLARGEMENT RIGHT BUNDLE BRANCH BLOCK ABNORMAL ECG WHEN COMPARED WITH ECG OF 27-NOV-2013 17:18, LEFT POSTERIOR FASCICULAR BLOCK IS NO LONGER PRESENT MINIMAL CRITERIA FOR INFERIOR INFARCT ARE NO LONGER PRESENT Confirmed by MD Guanako, Po ([id number]) on 12/04/2019 10:17:18 AM Referred By: Confirmed By:Po Mujica MD
[2019-12-04] MEDS: oxyCODONE HCL 5 MG TABLET PO PRN ×2 (13:00→21:10)
[2019-12-04] MEDS: ACETAMINOPHEN 325 MG TABLET (FP) PO PRN ×2 (13:01→21:10)
--- NOTE | 2019-12-04 14:37 | PN ---
Physical Exam: SUBJECTIVE: Patient seen and examined at bedside. Patient states that he feels better today after eating breakfast. Reports resolution of vision loss symptoms. OBJECTIVE: Vital Signs Period Temp Pulse Resp BP Sys/Cid Pulse Ox Last 24 Hr 97.9 F-99.1 F 66-92 12-20 122-155/70-99 95-99 GENERAL: AAOx3, in no acute distress HEENT: NCAT, PERRLA, EOMI, sclera anicteric, conjunctiva clear, oropharynx clear w/o exudates. MMM. NECK: Normal ROM, supple, no lymphadenopathy, JVD, or masses LUNGS: CTABL no wheezes/ rhonchi/ rales. No distress, speaks in full sentences. No increased work of breathing. HEART: RRR, normal S1 S2, no M/R/G, peripheral pulses 2+ and equal b/l ABDOMEN: Soft, NTND, + BS. No guarding or rebound. No hepatomegaly or splenomegaly. MSK: ROM WNL EXTREMITIES: Normal inspection. No peripheral edema. No clubbing or cyanosis. NEUROLOGICAL: CN II-XII intact. Normal speech, normal gait, no focal sensorimotor deficits. No visual deficits. SKIN: Warm, Dry, normal turgor, no rashes or lesions noted Laboratory Results - last 24 hr 12/03/19 12/03/19 12/03/19 18:20 18:20 18:20 WBC 6.8 RBC 4.24 Hgb 13.7 Hct 40.0 MCV 94.3 MCH 32.3 MCHC 34.3 RDW 12.7 Plt Count 255 MPV 8.8 Absolute Neuts (auto) 4.5 Neutrophils % 67.2 Lymphocytes % 23.6 D Monocytes % 7.1 Eosinophils % 1.3 Basophils % 0.8 Nucleated RBC % 0 PT with INR 12.30 INR 1.04 PTT (Actin FS) 30.2 Sodium Potassium Chloride Carbon Dioxide Anion Gap BUN Creatinine Est GFR (CKD-EPI)AfAm Est GFR (CKD-EPI)NonAf Random Glucose Calcium Phosphorus Magnesium Total Bilirubin AST ALT Alkaline Phosphatase Creatine Kinase Troponin I Total Protein Albumin Triglycerides 141 Cholesterol 163 Total LDL Cholesterol 85 HDL Cholesterol 64 H Urine Color Urine Appearance Urine pH Ur Specific [place] Urine Protein Urine Glucose (UA) Urine Ketones Urine Blood Urine Nitrite Urine Bilirubin Urine Urobilinogen Ur Leukocyte Esterase Blood Type Antibody Screen 12/03/19 12/03/19 12/04/19 18:20 18:20 00:00 WBC RBC Hgb Hct MCV MCH MCHC RDW Plt Count MPV Absolute Neuts (auto) Neutrophils % Lymphocytes % Monocytes % Eosinophils % Basophils % Nucleated RBC % PT with INR INR PTT (Actin FS) Sodium 141 Potassium 3.9 Chloride 105 Carbon Dioxide 27 Anion Gap 10 BUN 16.6 Creatinine 0.9 Est GFR (CKD-EPI)AfAm 104.98 Est GFR (CKD-EPI)NonAf 90.58 Random Glucose 85 Calcium 9.2 Phosphorus Magnesium Total Bilirubin 0.4 AST 23 ALT 27 Alkaline Phosphatase 78 Creatine Kinase 97 Troponin I < 0.02 Total Protein 7.0 Albumin 4.4 Triglycerides Cholesterol Total LDL Cholesterol HDL Cholesterol Urine Color Yellow Urine Appearance Clear Urine pH 7.0 Ur Specific [place] 1.005 L Urine Protein Negative Urine Glucose (UA) Negative Urine Ketones Negative Urine Blood Negative Urine Nitrite Negative Urine Bilirubin Negative Urine Urobilinogen 0.2 Ur Leukocyte Esterase Negative Blood Type O POSITIVE Antibody Screen Negative 12/04/19 12/04/19 06:56 06:56 WBC 5.8 RBC 3.99 L Hgb 12.8 Hct 37.5 MCV 94.0 MCH 32.1 MCHC 34.1 RDW 12.9 Plt Count 242 MPV 8.4 Absolute Neuts (auto) 2.9 Neutrophils % 50.0 D Lymphocytes % 36.5 D Monocytes % 10.2 Eosinophils % 2.8 D Basophils % 0.5 Nucleated RBC % 0 PT with INR INR PTT (Actin FS) Sodium 146 H Potassium 4.1 Chloride 111 H Carbon Dioxide 30 Anion Gap 5 L BUN 14.2 Creatinine 0.8 Est GFR (CKD-EPI)AfAm 110.19 Est GFR (CKD-EPI)NonAf 95.07 Random Glucose 75 Calcium 8.7 Phosphorus 3.4 Magnesium 2.2 Total Bilirubin AST ALT Alkaline Phosphatase Creatine Kinase Troponin I Total Protein Albumin Triglycerides Cholesterol Total LDL Cholesterol HDL Cholesterol Urine Color Urine Appearance Urine pH Ur Specific [place] Urine Protein Urine Glucose (UA) Urine Ketones Urine Blood Urine Nitrite Urine Bilirubin Urine Urobilinogen Ur Leukocyte Esterase Blood Type Antibody Screen Active Medications Generic Name Dose Route Start Last Admin Trade Name Freq PRN Reason Stop Dose Admin Acetaminophen 325 mg 12/04/19 11:30 12/04/19 13:01 Tylenol - PO 325 mg Q6H PRN Administration PAIN LEVEL 7 - 10 Alprazolam 0.5 mg 12/04/19 14:00 Xanax PO TID PRN ANXIETY Atorvastatin Calcium 40 mg 12/04/19 22:00 Lipitor - PO HS JESUS Enoxaparin Sodium 40 mg 12/04/19 10:00 12/04/19 10:06 Lovenox - SQ 40 mg DAILY JESUS Administration Sodium Chloride 1,000 mls @ 42 mls/hr 12/03/19 18:00 12/03/19 18:39 Normal Saline - IV 42 mls/hr ASDIR JESUS Administration Oxycodone HCl 10 mg 12/04/19 11:30 12/04/19 13:00 Roxicodone - PO 10 mg Q6H PRN Administration PAIN LEVEL 7 - 10 ASSESSMENT/PLAN: 64 year old male patient with past medical history of HTN, HLD, CAD s/p 3 stents, who presented to the emergency room with painless loss of vision for 20 minutes across bottom half of right eye with tingling in superior-lateral aspect above the right eye. #r/o TIA - continue Neurochecks - brain and neck MRI (12/03): no acute infarct or intracranial hemorrhage mikaela ntified - echo done today: normal thickness and function in all chambers of the heart; EF= 69% #r/o Brain Aneurysm - Mother had a brain aneurysm that popped - brain and neck MRI negative for aneurysm # HTN - Permissive HTN - May resume home meds when clinically appropriate #HLD - continue Atorvastatin # FEN -Monitor Electrolytes -Chol/Fat Controlled Diet DVT PPx # Lovenox SQ Visit type - Emergency Visit Emergency Visit: No - New Patient This patient is new to me today: Yes Date on this admission: 12/04/19 - Critical Care Critical Care patient: No - Discharge Referral Referred to [facility] Med P.C.: No ATTENDING PHYSICIAN STATEMENT I saw and evaluated the patient. I reviewed the resident's note and discussed the case with the resident. I agree with the resident's findings and plan as documented. SUBJECTIVE: OBJECTIVE: ASSESSMENT AND PLAN:
--- NOTE | 2019-12-04 15:28 | ECHO ---
Version: 1 Name: TESSIE TO Exam: Adult Echocardiogram Study Date: 12/04/2019, 2:08 PM Age: 64 Years MMode/2D Measurements & Calculations IVSd: 1.24 cm LVIDs: 2.5 cm LVIDd: 4.1 cm LVPWd: 1.12 cm LAV (MOD-bp): 60.1 ml LVOT diam: 2.13 cm Ao root diam: 3.0 cm LA dimension: 2.8 cm Doppler Measurements & Calculations MV E max kp: 79.5 cm/sec Med E/e': 8.4 MV A max kp: 74.2 cm/sec Med Peak E' Kp: 9.5 cm/sec MV E/A: 1.07 Lat E/e': 8.0 Lat Peak E' Kp: 9.9 cm/sec MR max P.9 mmHg Ao max P.4 mmHg Ao V2 max: 135.7 cm/sec TR max kp: 193.1 cm/sec TR max P.3 mmHg Left Ventricle The left ventricular size, thickness and function are normal. EF 69%. Right Ventricle The right ventricle is normal in size and function. Atria Normal left and right atrial size and function. Mitral Valve The mitral valve is normal in structure and function. Tricuspid Valve The tricuspid valve is normal in structure and function. Aortic Valve The aortic valve is normal in structure and function. Pulmonic Valve The pulmonic valve is normal in structure and function. Great Vessels The aortic root is normal size. Pericardium/Pleura There is no pericardial effusion. Summary Statements The left ventricular size, thickness and function are normal The right ventricle is normal in size and function. Normal left and right atrial size and function. The mitral valve is normal in structure and function. The tricuspid valve is normal in structure and function. The aortic valve is normal in structure and function. EF 69% MD Po Mujica 12/04/2019, 3:27 PM Ordering Physician: Thom Marrufo Performed By: Whit Sanford
[2019-12-04] MEDS: SODIUM CHLORIDE 1,000 ML IV SCH (18:02)
--- NOTE | 2019-12-04 18:40 | PN ---
Teaching Attending Note Name of Resident: Thom Marrufo ATTENDING PHYSICIAN STATEMENT I saw and evaluated the patient. I reviewed the resident's note and discussed the case with the resident. I agree with the resident's findings and plan as documented. SUBJECTIVE: Patient is comfortable with NAD. No further events. OBJECTIVE: Vital Signs Temperature 98.1 F 12/04/19 14:00 Pulse Rate 71 12/04/19 14:00 Respiratory Rate 20 12/04/19 14:00 Blood Pressure 134/71 12/04/19 14:00 O2 Sat by Pulse Oximetry (%) 97 12/04/19 10:00 PE: per resident's note CBCD WBC 5.8 K/mm3 (4.0-10.0) 12/04/19 06:56 RBC 3.99 M/mm3 (4.00-5.60) L 12/04/19 06:56 Hgb 12.8 GM/dL (11.7-16.9) 12/04/19 06:56 Hct 37.5 % (35.4-49) 12/04/19 06:56 MCV 94.0 fl (80-96) 12/04/19 06:56 MCHC 34.1 g/dl (32.0-35.9) 12/04/19 06:56 RDW 12.9 % (11.9-15.9) 12/04/19 06:56 Plt Count 242 K/MM3 (134-434) 12/04/19 06:56 MPV 8.4 fl (7.5-11.1) 12/04/19 06:56 CMP Sodium 146 mmol/L (136-145) H 12/04/19 06:56 Potassium 4.1 mmol/L (3.5-5.1) 12/04/19 06:56 Chloride 111 mmol/L (98-107) H 12/04/19 06:56 Carbon Dioxide 30 mmol/L (21-32) 12/04/19 06:56 Anion Gap 5 MMOL/L (8-16) L 12/04/19 06:56 BUN 14.2 mg/dL (7-18) 12/04/19 06:56 Creatinine 0.8 mg/dL (0.55-1.3) 12/04/19 06:56 Random Glucose 75 mg/dL (74-106) 12/04/19 06:56 Calcium 8.7 mg/dL (8.5-10.1) 12/04/19 06:56 Total Bilirubin 0.4 mg/dL (0.2-1) 12/03/19 18:20 AST 23 U/L (15-37) 12/03/19 18:20 ALT 27 U/L (13-61) 12/03/19 18:20 Alkaline Phosphatase 78 U/L (45-117) 12/03/19 18:20 Total Protein 7.0 g/dl (6.4-8.2) 12/03/19 18:20 Albumin 4.4 g/dl (3.4-5.0) 12/03/19 18:20 CARDIAC ENZYMES Creatine Kinase 97 U/L (26-308) 12/03/19 18:20 Troponin I < 0.02 ng/ml (0.00-0.05) 12/03/19 18:20 Current Medications Generic Name Dose Route Start Last Admin Trade Name Freq PRN Reason Stop Dose Admin Acetaminophen 325 mg 12/04/19 11:30 12/04/19 13:01 Tylenol - PO 325 mg Q6H PRN Administration PAIN LEVEL 7 - 10 Alprazolam 0.5 mg 12/04/19 14:00 12/04/19 14:15 Xanax PO 0.5 mg TID PRN Administration ANXIETY Atorvastatin Calcium 40 mg 12/04/19 22:00 Lipitor - PO HS JESUS Enoxaparin Sodium 40 mg 12/04/19 10:00 12/04/19 10:06 Lovenox - SQ 40 mg DAILY JESUS Administration Sodium Chloride 1,000 mls @ 42 mls/hr 12/03/19 18:00 12/04/19 18:02 Normal Saline - IV 42 mls/hr ASDIR JESUS Administration Oxycodone HCl 10 mg 12/04/19 11:30 12/04/19 13:00 Roxicodone - PO 10 mg Q6H PRN Administration PAIN LEVEL 7 - 10 Home Medications Medication Instructions Recorded Alprazolam [Xanax] 0.5 mg PO TID 08/23/12 Atorvastatin Ca [Lipitor] 40 mg PO HS 12/04/19 Oxycodone HCl/Acetaminophen 1 each PO QID PRN 12/04/19 [Endocet 10-325 mg Tablet] ASSESSMENT AND PLAN: 64 year old male patient with past medical history of HTN, HLD, CAD s/p 3 stents, who presented to the emergency room with painless loss of vision for 20 minutes across bottom half of right eye with tingling in superior-lateral aspect above the right eye. #Possible TIA r/o CVA: brain and neck MRI (12/03): no acute infarct or intracranial hemorrhage identified echo done today: normal thickness and function in all chambers of the heart: EF= 69% #HTN:stable #HLD: continue Atorvastatin DVT PPx; Lovenox SQ
[2019-12-04] MEDS ORDERED: ATORVASTATIN CA 40 MG TABLET (FP) PO SCH (22:00)
[2019-12-04] MEDS ORDERED: ATORVASTATIN CA 80 MG TABLET (FP) PO SCH (22:00)
[2019-12-05] MEDS: ACETAMINOPHEN 325 MG TABLET (FP) PO PRN (07:47)
[2019-12-05] MEDS: oxyCODONE HCL 5 MG TABLET PO PRN (07:47)
[2019-12-05 08:18] LABS: BASO % 0.8 % (0-2.0); EOS % 4.4 % (0-4.5); HEMATOCRIT 39.5 % (35.4-49); HEMOGLOBIN 13.2 GM/dL (11.7-16.9); LYMPH % 30.8 % (8-40); MCH 31.8 pg (25.7-33.7); MCHC 33.4 g/dl (32.0-35.9); MEAN CELL VOLUME 95.2 fl (80-96); MEAN PLT VOLUME 8.6 fl (7.5-11.1); MONO % 8.6 % (3.8-10.2); NEUT % 55.4 % (42.8-82.8); PLATELET COUNT 236 K/MM3 (134-434); RBC 4.15 M/mm3 (4.00-5.60); RDW 12.9 % (11.9-15.9)
[2019-12-05 08:21] LABS: BLOOD UREA NITROGEN 11.7 mg/dL (7-18); CALCIUM 8.8 mg/dL (8.5-10.1); CREATININE 0.9 mg/dL (0.55-1.3)
--- NOTE | 2019-12-05 08:51 | PN ---
Progress Note (short form) - Note Progress Note: Neurology CHIEF COMPLAINT: Painless loss of vision for 20 minutes across bottom of right eye with tingling in superior-lateral aspect above eye PCP: Dr. 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 The patient reported feeling afraid that he might have been having either a stroke or a brain aneurysm, as he has a family history of both a stroke and of his mother have a brain aneurysm that "popped". The patient has been having transient spots in his vision, but he became worried about both the size of the length of time that these current symptoms have las reema. The patient is currently free of symptoms. Head CT performed and showed no acute intracranial pathology. I discussed the case with the emergency room physician overnight and recommended MRI of the brain to evaluate for CVA. Patient does report taking daily aspirin 81 mg and states that his symptoms have entirely resolved, possibly TIA type event. MRI brain reviewed and discussed in detail, no acute infarct noted. Reviewed and discussed carotid Doppler results which showed no high-grade stenosis. Discussed with patient follow-up with me in the office as outpatient, same location as primary care physician, Dr. Desai. Active Medications Acetaminophen (Tylenol -) 325 mg PO Q6H PRN PRN Reason: PAIN LEVEL 7 - 10 Last Admin: 12/05/19 07:47 Dose: 325 mg Documented by: Alprazolam (Xanax) 0.5 mg PO TID PRN PRN Reason: ANXIETY Last Admin: 12/04/19 21:10 Dose: 0.5 mg Documented by: Atorvastatin Calcium (Lipitor -) 40 mg PO HS JESUS Last Admin: 12/04/19 21:10 Dose: 40 mg Documented by: Enoxaparin Sodium (Lovenox -) 40 mg SQ DAILY JESUS Last Admin: 12/04/19 10:06 Dose: 40 mg Documented by: Sodium Chloride (Normal Saline -) 1,000 mls @ 42 mls/hr IV ASDIR JESUS Last Admin: 12/04/19 18:02 Dose: 42 mls/hr Documented by: Oxycodone HCl (Roxicodone -) 10 mg PO Q6H PRN PRN Reason: PAIN LEVEL 7 - 10 Last Admin: 12/05/19 07:47 Dose: 10 mg Documented by: PHYSICAL EXAMINATION Vital Signs Period Temp Pulse Resp BP Sys/Cid Pulse Ox Last 24 Hr 97.9 F-98.4 F 60-71 18-20 122-141/70-90 95-97 GENERAL: Awake, alert, and fully oriented, in no acute distress. HEAD: Normal with no signs of trauma. EYES: Pupils equal, round and reactive to light, extraocular movements intact. No lid lag. EARS, NOSE, THROAT: Ears normal, nares patent, oropharynx clear without exudates. Moist mucous membranes. NECK: Normal range of motion, supple without lymphadenopathy, JVD, or masses. LUNGS: Breath sounds equal, clear to auscultation bilaterally. No wheezes, and no crackles. No accessory muscle use. HEART: Regular rate and rhythm, normal S1 and S2 without murmur, rub or gallop. ABDOMEN: Soft, nontender, not distended, normoactive bowel sounds, no guarding, no rebound, no masses. MUSCULOSKELETAL: Normal range of motion at all joints. No bony deformities or tenderness. UPPER EXTREMITIES: 2+ pulses, warm, well-perfused. No cyanosis. No clubbing. No peripheral edema. LOWER EXTREMITIES: 2+ pulses, warm, well-perfused. No calf tenderness. No peripheral edema. NEUROLOGICAL: Cranial nerves II-XII intact. Normal speech. Normal gait. Muscle Strength +5/5 bilaterally UE's and LE's. PSYCHIATRIC: Cooperative. Good eye contact. Appropriate mood and affect. SKIN: Warm, dry, normal turgor, no rashes or lesions noted, normal capillary refill. CBCD WBC 6.0 K/mm3 (4.0-10.0) 12/05/19 06:50 RBC 4.15 M/mm3 (4.00-5.60) 12/05/19 06:50 Hgb 13.2 GM/dL (11.7-16.9) 12/05/19 06:50 Hct 39.5 % (35.4-49) 12/05/19 06:50 MCV 95.2 fl (80-96) 12/05/19 06:50 MCHC 33.4 g/dl (32.0-35.9) 12/05/19 06:50 RDW 12.9 % (11.9-15.9) 12/05/19 06:50 Plt Count 236 K/MM3 (134-434) 12/05/19 06:50 MPV 8.6 fl (7.5-11.1) 12/05/19 06:50 CMP Sodium 144 mmol/L (136-145) 12/05/19 06:50 Potassium 4.0 mmol/L (3.5-5.1) 12/05/19 06:50 Chloride 110 mmol/L (98-107) H 12/05/19 06:50 Carbon Dioxide 26 mmol/L (21-32) 12/05/19 06:50 Anion Gap 8 MMOL/L (8-16) 12/05/19 06:50 BUN 11.7 mg/dL (7-18) 12/05/19 06:50 Creatinine 0.9 mg/dL (0.55-1.3) 12/05/19 06:50 Random Glucose 110 mg/dL (74-106) H 12/05/19 06:50 Calcium 8.8 mg/dL (8.5-10.1) 12/05/19 06:50 Total Bilirubin 0.4 mg/dL (0.2-1) 12/03/19 18:20 AST 23 U/L (15-37) 12/03/19 18:20 ALT 27 U/L (13-61) 12/03/19 18:20 Alkaline Phosphatase 78 U/L (45-117) 12/03/19 18:20 Total Protein 7.0 g/dl (6.4-8.2) 12/03/19 18:20 Albumin 4.4 g/dl (3.4-5.0) 12/03/19 18:20 CARDIAC ENZYMES Creatine Kinase 97 U/L (26-308) 12/03/19 18:20 Troponin I < 0.02 ng/ml (0.00-0.05) 12/03/19 18:20 ASSESSMENT/PLAN: 64 year old male patient with past medical history of HTN, HLD, CAD s/p 3 stents, who presented to the emergency room with painless loss of vision for 20 minutes across bottom of right eye with tingling in superior-lateral aspect above the right eye 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 The patient reported feeling afraid that he might have been having either a stroke or a brain aneurysm, as he has a family history of both a stroke and of his mother have a brain aneurysm that "popped". The patient has been having transient spots in his vision, but he became worried about both the size of the length of time that these current symptoms have lasted. The patient is currently free of symptoms. Head CT performed and showed no acute intracranial pathology. I discussed the case with the emergency room physician overnight and recommended MRI of the brain to evaluate for CVA. Patient does report taking daily aspirin 81 mg and states that his symptoms have entirely resolved, possibly TIA type event. MRI brain was negative for stroke, carotid Dopplers without hemodynamically significant stenosis. monitor blood pressure, maintain normotensive range, continue atorvastatin 40 mg, goal LDL less than 100. Continue aspirin 81 mg daily. neurologically at baseline, outpatient follow-up recommended.
[2019-12-05] MEDS: ALPRAZolam 1 MG TABLET PO PRN (09:20)
[2019-12-05] MEDS: ENOXAPARIN NA (PORCINE) 40 MG/0.4 ML DISP.SYRIN SQ SCH (09:20)
[2019-12-05 10:23] VITALS: BP 139/72; PULSE 68; TEMP 97.6
--- NOTE | 2019-12-05 12:32 | DS ---
Physical Exam: SUBJECTIVE: Patient seen and examined at bedside. No acute events reported overnight. Patient has no concerns or complaints at this time. OBJECTIVE: Vital Signs Period Temp Pulse Resp BP Sys/Cid Pulse Ox Last 24 Hr 97.6 F-98.4 F 60-71 18-20 134-141/71-90 95-97 PHYSICAL EXAM GENERAL: AAOx3, in no acute distress HEENT: NCAT, PERRLA, EOMI, sclera anicteric, conjunctiva clear, oropharynx clear w/o exudates. MMM. NECK: Normal ROM, supple, no lymphadenopathy, JVD, or masses LUNGS: CTABL no wheezes/ rhonchi/ rales. No distress, speaks in full sentences. No increased work of breathing. HEART: RRR, normal S1 S2, no M/R/G, peripheral pulses 2+ and equal b/l ABDOMEN: Soft, NTND, + BS. No guarding or rebound. No hepatomegaly or splenomegaly. MSK: ROM WNL EXTREMITIES: Normal inspection. No peripheral edema. No clubbing or cyanosis. NEUROLOGICAL: CN II-XII intact. Normal speech, normal gait, no focal sensorimotor deficits. No visual deficits. SKIN: Warm, Dry, normal turgor, no rashes or lesions noted LABS Laboratory Results - last 24 hr 12/05/19 12/05/19 06:50 06:50 WBC 6.0 RBC 4.15 Hgb 13.2 Hct 39.5 MCV 95.2 MCH 31.8 MCHC 33.4 RDW 12.9 Plt Count 236 MPV 8.6 Absolute Neuts (auto) 3.3 Neutrophils % 55.4 Lymphocytes % 30.8 Monocytes % 8.6 Eosinophils % 4.4 Basophils % 0.8 Nucleated RBC % 0 Sodium 144 Potassium 4.0 Chloride 110 H Carbon Dioxide 26 Anion Gap 8 BUN 11.7 Creatinine 0.9 Est GFR (CKD-EPI)AfAm 104.98 Est GFR (CKD-EPI)NonAf 90.58 Random Glucose 110 H Calcium 8.8 Triglycerides 102 Cholesterol 158 Total LDL Cholesterol 86 HDL Cholesterol 56 HOSPITAL COURSE: 64 year old male patient with past medical history of HTN, HLD, CAD s/p 3 stents, who presented to the emergency room with painless loss of vision for 20 minutes across bottom half of right eye with tingling in superior-lateral aspect above the right eye. Head CT done in the ED was negative for intracranial pathology. To rule out TIA we ordered a brain and neck MRI which revealed no acute infarct or intracranial hemorrhage. We also did an echocardiogram which revealed normal thickness and function in all chambers of the heart; EF= 69%. Carotid doppler study revealed no doppler evidence of high grade stenosis. Patient was taking his home medications for hypertension and hyperlipidemia during his stay. Patient was on Lovenox SQ was DVT prophylaxis during his stay and was on a fat controlled diet. Date of Admission:12/03/19 -12/03/2019-Head CT- No CT evidence of acute intracranial pathology -12/04/2019- Carotid Doppler study- no doppler evidence of high grade stenosis -12/04/2019- brain and neck MRI: no acute infarct or intracranial hemorrhage identified -12/[id number] thickness and function in all chambers of the heart; EF=69% Date of Discharge: 12/05/19 Minutes to complete discharge: 36 Discharge Summary Problems reviewed: Yes Reason For Visit: VISUAL FIELD DEFECT OF RIGHT EYE,ANXEITY, Current Active Problems Dizziness (Acute) Condition: Stable - Instructions Diet, Activity, Other Instructions: Your visit: You were admitted to the hospital for a right eye vision deficit. You were found to have a normal brain MRI and a normal carotid ultrasound. Your symptoms improved without any treatment. Medications changes: -Continue daily aspirin 81mg enteric coated. -Continue to take all other home medications as prescribed. Follow up: - Please follow-up with Ophthalmology Dr. Tinajero in 1 week. - Follow up with Neurologist Dr. Salinas in 1 week. - Visit with your Primary Care Provider, Dr. Desai, in 2 weeks. -follow up with your mosquito sprayer within a week period. Additional Instructions: -You are being discharged to your home. -Please return to the Emergency Department if you experience worsening pain, fevers, chills, shortness of breath, or chest pain, or if you experience any worsening, new or concerning symptoms. Referrals: Zoran Luu MD [Staff Physician] - Merrill Salinas MD [Staff Physician] - Rainer Tinajero MD [Staff Physician] - Jose Luis Desai MD [Primary Care Provider] - Disposition: HOME - Home Medications Comprehensive Discharge Medication List: Ambulatory Orders Alprazolam [Xanax] 0.5 mg PO TID 08/23/12 Atorvastatin Ca [Lipitor] 40 mg PO HS 12/04/19 Oxycodone HCl/Acetaminophen [Endocet 10-325 mg Tablet] 1 each PO QID PRN 12/04/19 This patient is new to me today: No Emergency Visit: No Critical Care patient: No - Discharge Referral Referred to [facility] No ATTENDING PHYSICIAN STATEMENT I saw and evaluated the patient. I reviewed the resident's note and discussed the case with the resident. I agree with the resident's findings and plan as documented. SUBJECTIVE: OBJECTIVE: ASSESSMENT AND PLAN:
--- NOTE | 2019-12-05 13:07 | CON.CARD ---
Consult Consult Specialty:: cardiology Referred by:: medicine Reason for Consultation:: pause on tele - History of Present Illness Chief Complaint: vision loss History of Present Illness: 64M h/o CAD s/p 3 stents in 2012 p/w painless vision loss in R eye on day of admission. Lasted about 20 min, happened while moving air conditioner. No chest pain, palps, dizziness, dyspnea. Was evaluated by neuro. While monitoring on tele, reportedly had 3 second pause yesterday afternoon. Per patient he thinks he was napping at the time. Notes a history of abnormal EKG with pauses, was told in the past he needed a pacemaker. Sees Dr. Luu for cardio, had planned outpatient stress testing and EP eval. 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 Home Medications - Allergies Allergies/Adverse Reactions: Allergies Allergy/AdvReac Type Severity Reaction Status Date / Time No Known Allergies Allergy Verified 12/03/19 17:50 - Home Medications Home Medications: Ambulatory Orders Alprazolam [Xanax] 0.5 mg PO TID 08/23/12 Atorvastatin Ca [Lipitor] 40 mg PO HS 12/04/19 Oxycodone HCl/Acetaminophen [Endocet 10-325 mg Tablet] 1 each PO QID PRN 12/04/19 Family Medical History Family History: Unremarkable Family Hx Diabetes: Sister (2 Sisters with diabetes) Family Hx Nuerologic Problems: Mother Other Family History: Stroke, Mother had brain aneurysm that "popped" Review of Systems - Review of Systems Constitutional: reports: No Symptoms Eyes: reports: Recent Change in Vision HENT: reports: No Symptoms Neck: reports: No Symptoms Cardiovascular: reports: No Symptoms Respiratory: reports: No Symptoms Gastrointestinal: reports: No Symptoms Musculoskeletal: reports: No Symptoms Integumentary: reports: No Symptoms Neurological: reports: No Symptoms Endocrine: reports: No Symptoms Hematology/Lymphatic: reports: No Symptoms Psychiatric: reports: No Symptoms Vital Signs: Vital Signs Temperature 97.6 F 12/05/19 09:00 Pulse Rate 68 12/05/19 09:00 Respiratory Rate 18 12/05/19 10:00 Blood Pressure 139/72 12/05/19 09:00 O2 Sat by Pulse Oximetry (%) 97 12/05/19 10:00 Constitutional: Yes: No Distress, Calm Eyes: Yes: Conjunctiva Clear, EOM Intact HENT: Yes: Atraumatic, Normocephalic Neck: Yes: Supple, Trachea Midline Respiratory: Yes: Regular, CTA Bilaterally Gastrointestinal: Yes: Normal Bowel Sounds, Soft Cardiovascular: Yes: Regular Rate and Rhythm JVD: No Heart Sounds: Yes: S1, S2 Musculoskeletal: No: Back Pain Extremities: No: Cold Edema: No Integumentary: No: Jaundice Neurological: Yes: Alert, Oriented Psychiatric: No: Agitated - Other Data Labs, Other Data: CBC, BMP 12/05/19 06:50 12/05/19 06:50 INR, PTT INR 1.04 (0.83-1.09) 12/03/19 18:20 Assessment/Plan EKG: sinus, RBBB, no ischemic changes echo 11/2019 nl LV/RV function, no significant valvular pathology tele: sinus, 2-3 sec pauses sinus pauses, bradycardia - has history of EP eval with consideration of PPM - episodes here noted while sleeping although per patient has happened in the day time as well - outpatient EP follow up - avoid derek blocking agents vision loss - possible TIA - neuro following - echo, carotids unremarkable - EP follow up for pauses on tele as above HLD - cont statin CAD - cont aspirin, statin
--- NOTE | 2019-12-05 18:13 | PN ---
Teaching Attending Note Name of Resident: Thom Marrufo ATTENDING PHYSICIAN STATEMENT I saw and evaluated the patient. I reviewed the resident's note and discussed the case with the resident. I agree with the resident's findings and plan as documented. SUBJECTIVE: Patient has no further event overnight, Has 3 second pauses yesterday , no furth er pauses or vision loss OBJECTIVE: Vital Signs Temperature 97.6 F 12/05/19 09:00 Pulse Rate 68 12/05/19 09:00 Respiratory Rate 18 12/05/19 10:00 Blood Pressure 139/72 12/05/19 09:00 O2 Sat by Pulse Oximetry (%) 97 12/05/19 10:00 PE; per resident's note CBCD WBC 6.0 K/mm3 (4.0-10.0) 12/05/19 06:50 RBC 4.15 M/mm3 (4.00-5.60) 12/05/19 06:50 Hgb 13.2 GM/dL (11.7-16.9) 12/05/19 06:50 Hct 39.5 % (35.4-49) 12/05/19 06:50 MCV 95.2 fl (80-96) 12/05/19 06:50 MCHC 33.4 g/dl (32.0-35.9) 12/05/19 06:50 RDW 12.9 % (11.9-15.9) 12/05/19 06:50 Plt Count 236 K/MM3 (134-434) 12/05/19 06:50 MPV 8.6 fl (7.5-11.1) 12/05/19 06:50 CMP Sodium 144 mmol/L (136-145) 12/05/19 06:50 Potassium 4.0 mmol/L (3.5-5.1) 12/05/19 06:50 Chloride 110 mmol/L (98-107) H 12/05/19 06:50 Carbon Dioxide 26 mmol/L (21-32) 12/05/19 06:50 Anion Gap 8 MMOL/L (8-16) 12/05/19 06:50 BUN 11.7 mg/dL (7-18) 12/05/19 06:50 Creatinine 0.9 mg/dL (0.55-1.3) 12/05/19 06:50 Random Glucose 110 mg/dL (74-106) H 12/05/19 06:50 Calcium 8.8 mg/dL (8.5-10.1) 12/05/19 06:50 Total Bilirubin 0.4 mg/dL (0.2-1) 12/03/19 18:20 AST 23 U/L (15-37) 12/03/19 18:20 ALT 27 U/L (13-61) 12/03/19 18:20 Alkaline Phosphatase 78 U/L (45-117) 12/03/19 18:20 Total Protein 7.0 g/dl (6.4-8.2) 12/03/19 18:20 Albumin 4.4 g/dl (3.4-5.0) 12/03/19 18:20 CARDIAC ENZYMES Creatine Kinase 97 U/L (26-308) 12/03/19 18:20 Troponin I < 0.02 ng/ml (0.00-0.05) 12/03/19 18:20 Home Medications Medication Instructions Recorded Alprazolam [Xanax] 0.5 mg PO TID 08/23/12 Atorvastatin Ca [Lipitor] 40 mg PO HS 12/04/19 Oxycodone HCl/Acetaminophen 1 each PO QID PRN 12/04/19 [Endocet 10-325 mg Tablet] EKG: sinus, RBBB, no ischemic changes echo 11/2019 nl LV/RV function, no significant valvular pathology normal thickness and function in all chambers of the heart: EF= 69% carotids unremarkable tele: sinus, 2-3 sec pauses ASSESSMENT AND PLAN: This patient is a 64yom with PMhx of HTN, HLD, CAD s/p 3 stents, who presented to the emergency room with painless loss of vision for 20 minutes across bottom of right eye with tingling in superior-lateral aspect above the right eye 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 Patient had a 3 second pauses on the monitor. #Possible TIA r/o CVA: brain and neck MRI (12/03): no acute infarct or intracranial hemorrhage identified #vision loss with floaters that lasted 20minutes: patient will follow with Dr Butcher for further extensive eye exam #sinus pauses, bradycardia: patient needs to follow up with EP as an outpatient for possible PPm #HTN:stable #HLD: continue Atorvastatin #CAD: cont aspirin, statin DVT PPx; Lovenox SQ dc patient home.
--- NOTE | 2019-12-17 00:15 | PDOC ---
Documentation entered by Hellen Fraire SCRIBE, acting as scribe for Caleb Judge DO. Caleb Judge DO: This documentation has been prepared by the Juno ray Ana, SCRIBE, under my direction and personally reviewed by me in its entirety. I confirm that the documentation accurately reflects all work, treatment, procedures, and medical decision making performed by me. Attending Attestation - Resident Resident Name: Rik Liang - ED Attending Attestation I have performed the following: I have examined & evaluated the patient, The case was reviewed & discussed with the resident, I agree w/resident's findings & plan, Exceptions are as noted - HPI HPI: 12/03/19 18:16 Patient is a 64 year old male with a significant past medical history of ... who presents to the ED with ... Patient denies: Allergies: NKDA Discharge - Discharge Information Clinical Impression/Diagnosis: Dizziness - Follow up/Referral Referrals: Jose Luis Desai MD [Primary Care Provider] - - Patient Discharge Instructions - Post Discharge Activity
== END 2019-12-05 13:12 | disposition home or self-care (01) ==
LOC: JER 17:44 → JERBED 19:58 → INTOOBSV 19:58 → J4W 12-04 00:54
PROVIDERS: ADMIT Internal Medicine; ATTEND Internal Medicine
PROC: 3E023GC Introduction of Other Therapeutic Substance into Muscle, Percutaneous Approach (ICD-10-PCS; principal; 2019-12-03)
PROC: 3E0337Z Introduction of Electrolytic and Water Balance Substance into Peripheral Vein, Percutaneous Approach (ICD-10-PCS; 2019-12-03)
DX: I25.10 Atherosclerotic heart disease of native coronary artery without angina pectoris (principal); I10 Essential (primary) hypertension; E78.5 Hyperlipidemia, unspecified; F41.9 Anxiety disorder, unspecified; R42 Dizziness and giddiness; H50.9 Unspecified strabismus; M06.9 Rheumatoid arthritis, unspecified; G89.29 Other chronic pain; M54.5 Low back pain; I25.2 Old myocardial infarction; Z87.891 Personal history of nicotine dependence; Z29.9 Encounter for prophylactic measures, unspecified; Z95.5 Presence of coronary angioplasty implant and graft
CPT/HCPCS: 36415; 70450-TC; 70551-TC; 80048; 80053; 80061; 81003; 82550; 83721; 83735; 84100; 84484; 85025; 85610; 85730; 86850; 86900; 86901; 87086; 93005; 93010; 93306-TC; 93880-TC; 96360; 96372; 99285-25; G0378; U0003

== ENCOUNTER 2021-11-30 02:49 | Observation (INO) | payer OTHER ==
[2021-11-30 02:58] VITALS: TEMP 98; BMI 24.3
[2021-11-30] MEDS ORDERED: SODIUM CHLORIDE 1,000 ML IV ONE (03:14)
[2021-11-30 04:48] LABS: BLOOD UREA NITROGEN 5.6 mg/dL (7-18); MAGNESIUM 1.7 mg/dL (1.8-2.4)
[2021-11-30 04:51] LABS: CREATININE 0.6 mg/dL (0.55-1.3)
[2021-11-30 04:53] LABS: TOT PROT 6.5 g/dl (6.4-8.2)
[2021-11-30 05:32] LABS: BASO % 0.4 % (0-2.0); EOS % 1.1 % (0-4.5); HEMATOCRIT 38.1 % (35.4-49); HEMOGLOBIN 13.3 GM/dL (11.7-16.9); MCH 31.9 pg (25.7-33.7); MCHC 34.8 g/dl (32.0-35.9); MEAN CELL VOLUME 91.7 fl (80-96); MEAN PLT VOLUME 8.9 fl (7.5-11.1); MONO % 6.5 % (3.8-10.2); PLATELET COUNT 254 10^3/uL (134-434); RBC 4.15 M/mm3 (4.00-5.60); RDW 12.3 % (11.9-15.9); WHITE BLOOD COUNT 7.4 K/mm3 (4.0-10.0)
[2021-11-30] MEDS ORDERED: MAGNESIUM SULF 50% (8.12 MEQ/2 ML-1 GM VIAL) IVPB ONE (06:09)
[2021-11-30] MEDS ORDERED: MAGNESIUM 1GM/D5W - 1 GM/100 ML IVPB IVPB ONE (06:21)
[2021-11-30] MEDS ORDERED: ASPIRIN 325 MG TABLET PO ONE (07:29)
[2021-11-30] MEDS ORDERED: ASPIRIN 325 MG TABLET ONE (07:55)
[2021-11-30] MEDS ORDERED: SODIUM CHLORIDE 1,000 ML IV SCH (08:45)
[2021-11-30 09:24] LABS: URINE APPEARANCE CLEAR; URINE BILIRUBIN NEGATIVE (NEGATIVE); URINE COLOR YELLOW; URINE GLUCOSE (UA) NEGATIVE (NEGATIVE); URINE KETONE NEGATIVE (NEGATIVE); URINE LEUK ESTERASE NEGATIVE (NEGATIVE); URINE NITRITE NEGATIVE (NEGATIVE); URINE PROTEIN NEGATIVE (NEGATIVE); URINE UROBILINOGEN 0.2 mg/dL (0.2-1.0)
[2021-11-30] MEDS ORDERED: ENOXAPARIN NA (PORCINE) 40 MG/0.4 ML DISP.SYRIN SQ SCH (10:00)
[2021-11-30] MEDS ORDERED: ENOXAPARIN NA (PORCINE) 40 MG/0.4 ML DISP.SYRIN SQ ONE (11:11)
[2021-11-30] MEDS ORDERED: PATIENT'S OWN MEDICATION (NON-FORMULARY) (Oxycodone Hcl/Acetaminophen [Endocet 10-325 Mg T PO PRN (11:47)
[2021-11-30] MEDS ORDERED: SERTRALINE HCL 50 MG TABLET (FP) ONE (12:59)
[2021-11-30] MEDS ORDERED: SERTRALINE HCL 50 MG TABLET (FP) PO SCH (13:00)
[2021-11-30] MEDS ORDERED: oxyCODONE HCL 5 MG TABLET PO PRN (13:00)
[2021-11-30] MEDS ORDERED: ACETAMINOPHEN 325 MG TABLET (FP) PO PRN (13:00)
[2021-11-30 13:50] VITALS: BP 136/94; PULSE 79
[2021-11-30 13:53] VITALS: RESP 18
[2021-11-30] MEDS ORDERED: ALPRAZolam 1 MG TABLET PO SCH (14:00)
[2021-11-30] MEDS ORDERED: ATORVASTATIN CA 40 MG TABLET (FP) PO SCH (22:00)
[2021-12-01] MEDS ORDERED: ASPIRIN COATED 81 MG TABLET.EC PO SCH (10:00)
== END 2021-11-30 13:50 | disposition home or self-care (01) ==
LOC: JER 02:49 → JERBED 06:52
PROVIDERS: ADMIT Internal Medicine; ATTEND Internal Medicine
PROC: 3E033GC Introduction of Other Therapeutic Substance into Peripheral Vein, Percutaneous Approach (ICD-10-PCS; principal; 2021-11-30)
PROC: 3E0337Z Introduction of Electrolytic and Water Balance Substance into Peripheral Vein, Percutaneous Approach (ICD-10-PCS; 2021-11-30)
DX: I25.10 Atherosclerotic heart disease of native coronary artery without angina pectoris (principal); R42 Dizziness and giddiness; M06.9 Rheumatoid arthritis, unspecified; I49.5 Sick sinus syndrome; I47.1 Supraventricular tachycardia; Z29.8 Encounter for other specified prophylactic measures; Z87.891 Personal history of nicotine dependence; G89.29 Other chronic pain; E78.5 Hyperlipidemia, unspecified; I25.2 Old myocardial infarction; F41.9 Anxiety disorder, unspecified; M54.59 Other low back pain; Z95.5 Presence of coronary angioplasty implant and graft
CPT/HCPCS: 36415; 80053; 81003; 83735; 84484; 85025; 87086; 93005; 93010; 96361; 96374; 99285-25; C9803-CS; G0378; U0003; U0005